=== PATIENT | female | born 1990 | race Caucasian/White ===

== ENCOUNTER 2016-09-29 08:35 | Emergency (ER) | payer BC ==
[2016-09-29 08:44] VITALS: BP 137/76
[2016-09-29 09:09] LABS: CHLORIDE,CL 103 mmol/L (98-107); SODIUM,NA 139 mmol/L (136-145)
[2016-09-29] MEDS ORDERED: Sodium Chloride 0.9% 1,000 ML IV ONE (09:34)
[2016-09-29] MEDS ORDERED: GI Cocktail Oral Solution 30 ML PO ONE (09:34)
[2016-09-29] MEDS ORDERED: Sodium Chloride 0.9% 10 ML Syringe FLUSH PRN (09:34)
[2016-09-29] MEDS ORDERED: Ketorolac 30 MG/ML SDV IVPUSH ONE (09:34)
[2016-09-29] MEDS ORDERED: Ondansetron 4 MG/2 ML SDV IVPUSH ONE (09:34)
[2016-09-29] MEDS ORDERED: Pantoprazole 40 MG Vial IVPUSH ONE (10:12)
--- NOTE | 2016-09-29 10:13 | EDM.PDOC ---
ED HPI GI/ABDOMINAL - General Chief Complaint: Abdominal Pain Stated Complaint: ABDOMINAL PAIN Time Seen by Provider: 09/29/16 09:20 Source of Information: Reports: Patient History Limitations: Reports: No limitations - History of Present Illness INITIAL COMMENTS - FREE TEXT/NARRATIVE: Epigastric pain, non-radiating, starting at 8am this morning. Mild nausea. No emesis. No bowel changes. Denies fevers/chills. No URI complaints other than increased sinus congestion over the last three days. Denies any other "cold" symptoms. No other pain. No increased burping. No history of similar pain. Admits to drinking extremely large number of Mountain Dews yesterday after not drinking them for awhile. Was also at [employer] and had large amount/variety of food yesterday too. Has had gallbladder removed. - Related Data Allergies/ADRs: Allergies Allergy/AdvReac Type Severity Reaction Status Date / Time No Known Allergies Allergy Verified 06/13/15 21:07 Home Meds: Home Meds [id number]/Dha/Fish Oil [ Gummies] 2 each PO DAILY 09/29/16 [ History] metFORMIN [Glucophage XR] 750 mg PO BID 09/29/16 [History] Past Medical History - Past Health History Medical/Surgical History: Denies Medical/Surgical History [employer] History: Reports: Polycystic Ovaries Musculoskeletal History: Reports: Fracture Other Musculoskeletal History: WRIST AND COLLAR BONE Dermatologic History: Reports: Other (see below) Other Dermatologic History: SOME SKIN PROBLEM OF UNKNOWN NAME 4 YEARS AGO. - Infectious Disease History Infectious Disease History: Reports: Chicken pox - Past Surgical History GI Surgical History: Reports: Cholecystectomy Social & Family History - Tobacco Use Smoking Status *Q: Former Smoker Years of Tobacco use: 10 Packs/Tins Daily: 0.2 Used Tobacco, but Quit: Yes Month Tobacco Last Used: 1 - Caffeine Use Caffeine Use: Reports: Soda - Recreational Drug Use Recreational Drug Use: No ED ROS GENERAL - Review of Systems Review Of Systems: See Below Constitutional: Reports: decreased appetite HEENT: Reports: Rhinitis, Sinus problem. Denies: Throat pain Respiratory: Reports: no symptoms Cardiovascular: Reports: No symptoms GI/Abdominal: Reports: Abdominal pain (see HPI), Decreased appetite, Nausea. Denies: Black stool, Bloody stool, Constipation, Diarrhea, Difficulty swallowing , Distension, Vomiting : Reports: no symptoms Musculoskeletal: Reports: no symptoms Skin: Reports: no symptoms Neurological: Reports: no symptoms Psychiatric: Reports: No symptoms Hematologic/Lymphatic: Reports: no symptoms ED EXAM, GI/ABD - Physical Exam Exam: See Below Exam Limited By: No limitations General Appearance: alert, no apparent distress, obese Eyes: bilateral: normal appearance, EOMI Ears: normal external exam Nose: normal inspection Throat/Mouth: Normal inspection, Normal teeth, Normal gums, Normal oropharynx, Normal voice, No airway compromise, Other (lips slightly dry) Head: atraumatic, normocephalic Neck: normal inspection, supple, non-tender, full range of motion. No: lymphadenopathy (L), lymphadenopathy (R) Respiratory/Chest: no respiratory distress, lungs clear, normal breath sounds, no accessory muscle use, chest non-tender Cardiovascular: normal peripheral pulses, regular rate, rhythm, no edema, no murmur GI/Abdominal: soft, no distention, hypoactive bowel sounds, tenderness (mild tenderness with deep palpation of epigastric area. Otherwise non-tender. ). No : guarding, rebound, rigidity (Female) Exam: Deferred Rectal (Female) Exam: Deferred Back Exam: normal inspection. No: CVA tenderness (L), CVA tenderness (R) Extremities: normal inspection, normal range of motion, non-tender, normal capillary refill Neurological: alert, oriented, normal cognition, normal gait, no motor/sensory deficits Psychiatric: normal affect, normal mood Skin Exam: Warm, Dry, Intact, Normal color, Other (slightly delayed capillary refill) Course - Vital Signs Last Recorded V/S: Last Vital Signs Temp 36.8 C 09/29/16 08:35 Pulse 66 09/29/16 08:35 Resp 20 09/29/16 08:35 BP 137/76 09/29/16 08:35 Pulse Ox 100 09/29/16 08:35 - Orders/Labs/Meds Orders: Active Orders 24 hr Category Date Time Status Sodium Chloride 0.9% [Saline Flush] Med 09/29/16 09:34 Active 10 ml FLUSH ASDIRECTED PRN Saline Lock Insert [OM.PC] Routine Oth 09/29/16 09:34 Ordered Medication Orders Sodium Chloride (Saline Flush) 10 ml FLUSH ASDIRECTED PRN PRN Reason: Keep Vein Open Last Admin: 09/29/16 10:51 Dose: 10 ml Labs: Laboratory Tests 09/29/16 09/29/16 09/29/16 Range/Units 08:45 08:45 09:54 WBC 6.4 (4.0-10.2) K/uL RBC 4.44 (3.77-5.09) M/uL Hgb 13.3 (11.7-15.5) g/dL Hct 39.5 (34.0-46.0) % MCV 89.0 (84.0-98.0) fL MCH 30.0 (28.2-33.3) pg MCHC 33.7 (31.7-36.0) g/dL RDW 13.2 (11.2-14.1) % Plt Count 318 (150-350) K/uL Neut % (Auto) 50.3 (45.0-80.0) % Lymph % (Auto) 38.2 (10.0-50.0) % [place] % (Auto) 8.7 (2.0-14.0) % Eos % (Auto) 2.5 (0.0-5.0) % Baso % (Auto) 0.3 (0.0-2.0) % Neut # 3.23 (1.40-7.00) K/uL Lymph # 2.45 (0.50-3.50) K/uL [place] # 0.56 (0.00-1.00) K/uL Eos # 0.16 (0.00-0.50) K/uL Baso # 0.02 (0.00-0.20) K/uL Sodium 139 (136-145) mmol/L Potassium 4.0 (3.5-5.1) mmol/L Chloride 103 (98-107) mmol/L Carbon Dioxide 23.0 (21.0-32.0) mmol/L BUN 10 (7-18) mg/dL Creatinine 0.72 (0.51-1.17) mg/dL Est Cr Clr Drug Dosing 115.14 mL/min Estimated GFR (MDRD) > 60 mL/min Glucose 123 H (74-106) mg/dL Calcium 9.0 (8.5-10.1) mg/dL Total Bilirubin 0.2 (0.2-1.0) mg/dL AST 21 (15-37) U/L ALT 48 (12-78) U/L Alkaline Phosphatase 64 (46-116) IU/L Total Protein 7.7 (6.4-8.2) g/dL Albumin 3.7 (3.4-5.0) g/dL Amylase 36 (25-115) U/L Lipase 125 (73-393) U/L Specimen Type Urinblad Urine Color Yellow Urine Appearance Clear Urine pH 5.5 (5.0-9.0) Ur Specific [place] >= 1.030 (1.005-1.030) Urine Protein 30 H (NEGATIVE) mg/dL Urine Glucose (UA) Negative (NEGATIVE) mg/dL Urine Ketones Negative (NEGATIVE) mg/dL Urine Occult Blood Negative (NEGATIVE) Urine Nitrite Negative (NEGATIVE) Urine Bilirubin Negative (NEGATIVE) Urine Urobilinogen 0.2 (0.2-1.0) E.U./dL Ur Leukocyte Esterase Negative (NEGATIVE) Urine RBC 0-5 /HPF Urine WBC 0-5 /HPF Ur Epithelial Cells Moderate H /LPF Urine Bacteria Few (NONE TO FEW) /HPF Meds: Medications Generic Name Dose Route Start Last Admin Trade Name Freq PRN Reason Stop Dose Admin Sodium Chloride 10 ml 09/29/16 09:34 09/29/16 10:51 Saline Flush FLUSH 10 ml ASDIRECTED PRN Administration Keep Vein Open Discontinued Medications Generic Name Dose Route Start Last Admin Trade Name Freq PRN Reason Stop Dose Admin Al Hydroxide/Mg Hydroxide 30 ml 09/29/16 09:34 09/29/16 09:49 Gi Cocktail PO 09/29/16 09:35 30 ml ONETIME ONE Administration Sodium Chloride 1,000 mls @ 999 mls/hr 09/29/16 09:34 09/29/16 09:42 Normal Saline IV 09/29/16 10:34 999 mls/hr .BOLUS ONE Administration Ketorolac Tromethamine 30 mg 09/29/16 09:34 09/29/16 09:42 Toradol IVPUSH 09/29/16 09:35 30 mg ONETIME ONE Administration Ondansetron HCl 4 mg 09/29/16 09:34 09/29/16 09:42 Zofran IVPUSH 09/29/16 09:35 4 mg ONETIME ONE Administration Pantoprazole Sodium 40 mg 09/29/16 10:12 09/29/16 10:46 Protonix Iv IVPUSH 09/29/16 10:13 40 mg ONETIME ONE Administration - Re-Assessments/Exams Free Text/Narrative Re-Assessment/Exam: 09/29/16 10:12 Improved after receiving GI cocktail. Protonix ordered. 09/29/16 13:39 Patient almost pain-free at time of discharge. Overall significant improvement. Pain likely GI in nature and high likelihood it is related to gastritis triggered either by yesterday's diet and Mountain Dew, or could be early viral gastroenteritis. CBC/Chem/Lipase/Amylase overall unremarkable. Patient feels able to go home. Precautions given/discussed prior to discharge. Recommend clear liquids today and continued observation for new symptoms/symptom change that may help identify cause of today's symptoms. She is to return to the ER if she has worsening symptoms. She is to follow up with primary provider this week if she has mild persistent symptoms. Departure - Departure Time of Disposition: 11:49 Disposition: Home, Self-Care 01 Condition: good Clinical Impression: Abdominal pain Qualifiers: Abdominal location: epigastric Qualified Code(s): R10.13 - Epigastric pain Instructions: Abdominal Pain, Adult, [id number] Referrals: Britney Nieves MD [Primary Care Provider] - Forms: ED Department Discharge Additional Instructions: Diet as discussed. No soda/bottled or canned drinks. Water is preferred. Watch for changes and any new symptoms. Follow up as needed if things worsen or do not completely resolve within 1-2 days. - My Orders Last 24 Hours: My Active Orders 09/29/16 09:34 Sodium Chloride 0.9% [Saline Flush] 10 ml FLUSH ASDIRECTED PRN Saline Lock Insert [OM.PC] Routine - Assessment/Plan Last 24 Hours: My Active Orders 09/29/16 09:34 Sodium Chloride 0.9% [Saline Flush] 10 ml FLUSH ASDIRECTED PRN Saline Lock Insert [OM.PC] Routine
== END 2016-09-29 12:00 | disposition home or self-care (01) ==
LOC: LL.ED 08:35
DX: R10.13 Epigastric pain (principal); Z90.49 Acquired absence of other specified parts of digestive tract; Z87.891 Personal history of nicotine dependence
CPT/HCPCS: 36415; 80053; 81001; 82150; 83690; 85025; 86318; 96361; 96374; 96375; 99284; A9270; C9113; J1885; J2405; J7030; J7050

== ENCOUNTER 2021-08-19 15:16 | Emergency (ER) | payer BC ==
[2021-08-19 15:21] VITALS: PULSE 92
[2021-08-19] MEDS ORDERED: Ketorolac 60 MG/2 ML SDV IM ONE (15:46)
[2021-08-19] MEDS ORDERED: methylPREDNISolone Sodium Succinate 125 MG/2 ML SDV IVPUSH ONE (15:46)
[2021-08-19] MEDS ORDERED: Ondansetron 4 MG Tab.DIS PO ONE (15:46)
[2021-08-19] MEDS ORDERED: HYDROmorphone 1 MG/ML Syringe IM ONE (15:46)
[2021-08-19 15:50] VITALS: BP 133/83
[2021-08-19] MEDS ORDERED: methylPREDNISolone Sodium Succinate 125 MG/2 ML SDV IM ONE (16:01)
== END 2021-08-19 16:45 | disposition home or self-care (01) ==
LOC: LL.ED 15:16
DX: M54.42 Lumbago with sciatica, left side (principal); Z79.899 Other long term (current) drug therapy; Z87.891 Personal history of nicotine dependence
CPT/HCPCS: 96372; 99283; A9270-GY; J1170; J1885; J2930